=== PATIENT | male | born 1970 | race Caucasian/White ===

== ENCOUNTER 2018-05-21 02:22 | Outpatient (CLI) | payer BC, SELFPAY ==
[2018-05-21 11:39] LABS: Cholesterol 183 mg/dL (50-200); Glucose 86 mg/dL (70-100); HDL Cholesterol 39 mg/dL (40-60); LDL CHOLESTEROL 121 mg/dL (<100); Triglyceride 134 mg/dL (30-150)
[2018-05-22 08:58] LABS: PSA, Screening 0.6 ng/ml (0-3.5)
== END 2018-05-21 02:42 ==
PROVIDERS: PCP Family Medicine; Visit Provider Family Medicine
DX: E78.5 Hyperlipidemia, unspecified (principal); Z12.5 Encounter for screening for malignant neoplasm of prostate
CPT/HCPCS: 36415; 80061; 82947; 83721; 84153

== ENCOUNTER 2018-06-07 09:51 | Outpatient (CLI) | payer BC, SELFPAY ==
[2018-06-09 16:36] LABS: Testosterone, Total 275 ng/dL (240-950)
== END 2018-06-07 10:11 ==
PROVIDERS: PCP Family Medicine; Visit Provider Family Medicine
DX: N52.9 Male erectile dysfunction, unspecified (principal)
CPT/HCPCS: 36415; 84402; 84403

== ENCOUNTER 2018-09-11 06:11 | Day surgery (SDC) | payer BC, SELFPAY ==
--- NOTE | 2018-09-11 06:11 | W.PM.HP.N ---
Date of service: 09/11/18 Time of Service: 06:30 Assessment and Plan (1) Encounter for screening colonoscopy: Current visit: No Status: Acute P\\ Colonoscopy under sedation The patient is here for his first Colonoscopy pre-op. He has no family history of colon cancer. He has not had any bowel habit changes. -Discussed colonoscopy bowel prep as well as the procedure. Discussed possible complications of the procedure to include bleeding, pain, perforation, missed small lesion/polyp, sore throat, aspiration and adverse reaction to the medications. Questions were answered to patient?s satisfaction. No guarantees were implied or given. History of Present Illness Narrative: 48 y/o male presents for his first colonoscopy screening pre-op. He denies a family history of colon cancer. He denies any changes in bowel habits including bloody or black tarry stools, abdominal pain, diarrhea or constipation. He denies constitutional symptoms. Denies use of marijuana or any other recreational or illegal drugs. He denies chest pain, palpitations, dyspnea or dyspnea with exertion. He exercises 2x/wk. He denies prior history or family history of adverse reactions or complications with anesthesia. There have been no changes in his health since he was last seen in the office. Review of Systems Cardiovascular Denies chest pain, Denies chest pain at rest, Denies irregular heart rhythm, Denies dyspnea and Denies dyspnea on exertion Respiratory Denies cough, Denies dyspnea and Denies dyspnea on exertion FORMERLY [facility], 1928–1983 Surgical History History of total replacement of both hip joints (Resolved) Appendectomy Total replacement of hip VARICOSE VEIN REMOVAL 11/2016 Family History Mother Diabetes Father No problems noted. Sister Personal history of malignant neoplasm Sister No problems noted. Sister No problems noted. Brother No problems noted. Grandfather No problems noted. Grandfather No problems noted. Grandmother Diabetes Grandmother No problems noted. Son No problems noted. Son No problems noted. Social History household members: other details: 4 current occupational status: employed current occupation: Sales pets and animals: No frequency: 3-4 times per week duration: 45-60 minutes/day Smoking/Tobacco Use Status: Never alcohol intake: current alcohol intake frequency: holidays/special occasions only substance use type: does not use special nicole needs: No Meds Home Medications Medication Instructions Recorded Confirmed Type amoxicillin 500 mg tablet 2 gm PO ONCE PRN #12 tab 05/18/18 09/07/18 Rx sildenafil (antihypertensive) 20 20 - 100 mg PO DAILY PRN #30 tab 05/18/18 08/06/18 Rx mg tablet syringe with needle 3 mL 22 gauge #2 each 06/12/18 08/06/18 Rx x 1 testosterone cypionate 200 mg/mL 100 mg IM Q2W #1 ml 06/12/18 08/06/18 Rx intramuscular oil bisacodyl 5 mg tablet,delayed 5 mg PO ONCE #4 tab 08/06/18 08/06/18 Rx release polyethylene glycol 3350 17 255 g PO ONCE #255 gm 08/06/18 08/06/18 Rx gram/dose oral powder Allergies Allergy/AdvReac Type Severity Reaction Status Date / Time No Known Allergies Allergy Verified 08/06/18 10:07 Exam Resp Effort & Inspection: normal respiratory effort Auscultation: clear to auscultation bilaterally Cardio Rate: regular rate Rhythm: regular rhythm Heart Sounds: no gallops, no murmurs and no rubs
--- NOTE | 2018-09-11 06:24 | W.COLOREPORT ---
Date of service: 09/11/18 Time of Service: 07:35 Colonoscopy Report Date of procedure: 09/11/18 Pre-op diagnosis general: Colon Cancer Screening Post-op diagnosis procedure note: same Procedure: Colonoscopy Surgeon: Antonette Esteban Anesthesia proc note operative: MAC (Aleja Conley CRNA/ ASA 2) Estimated blood loss (mL): 0 Pathology: none sent Complications: None Disposition: same day Indications: Mr Greenfield is a 48-year-old gentleman who was seen in the office for his first screening colonoscopy. There is no family history of colon cancer. Risks, benefits and complications have been reviewed. Complications include but are not limited to bleeding, pain, perforation, missed small lesion/polyp, sore throat, aspiration and adverse reaction to the medications. Questions were entertained and answered to their satisfaction and they wished to proceed. No guarantees were given or implied. Prep: Miralax/Dulcolax Procedure Start Time: 07:35 Procedure End Time: 07:56 Retraction Time: 13 minutes Findings: Normal colonoscopy Procedure Description: After informed consent was obtained the patient was taken to the procedure room and placed in a left decubitous position. Monitors were applied and a time out was done. The patients name, date of , procedure, allergies to medications and metal in their body was reviewed. The patient was then sedated. Once sedated and comfortable a rectal exam was done. External exam was normal. Internal exam revealed a normal sphincter tone and no palpable masses. The prostate felt normal. The scope was then introduced and retro-flexed. No internal hemorrhoids were identified. The scope was then advanced to the cecum without difficulty. The TI and appendiceal orifice were identified. The prep was adequate. The scope was then slowly retracted over 13 minutes back into the rectum. There were no polyps and no diverticulosis. The scope was removed and the patient was woken up and taken back to Same day surgery in stable condition. The patient tolerated the procedure well and there were no immediate complications. Follow up: The patient should follow up in 10 years unless they develop changes in bowel habits or other new gastrointestinal complaints.
--- NOTE | 2018-09-11 06:25 | W.PM.DSUDISC ---
Discharge Plan Disposition Patient Disposition: HOME Condition: Good Discharge Details Reason For Visit: Colon Cancer Screening Attending Provider: Antonette Esteban Primary Care Provider: Anthony Kay Home Meds and New Rx's Prescriptions: Continued sildenafil (antihypertensive) 20 mg tablet 20 - 100 mg PO DAILY PRN (Reason: sexual activity) Qty: 30 RF: 8 amoxicillin 500 mg tablet 2 gm PO ONCE PRN (Reason: hip prostheses) Qty: 12 RF: 0 testosterone cypionate [Depo-Testosterone] 200 mg/mL oil 100 mg IM Q2W Qty: 1 RF: 2 Monoject Syringe 3 mL 22 gauge x 1 syringe .ROUTE .MEDSUPPLY Qty: 2 RF: 2 Discontinued bisacodyl [Dulcolax (bisacodyl)] 5 mg tablet,delayed release (DR/EC) 5 mg PO ONCE Qty: 4 RF: 0 polyethylene glycol 3350 17 gram/dose powder 255 g PO ONCE Qty: 255 RF: 0 Discharge Instructions Instructions: Colonoscopy (DC) Additional Instructions: Findings: Normal colon Follow up:10 years Please call if you develop: fevers >101.5 Nausea or Vomiting Abdominal pain that is not transient DAY SURGERY UNIT POST COLONOSCOPY INSTRUCTIONS 1. Because there will be medication in your system for the next 24 hours, you may feel a little sleepy. Your coordination will be affected. Therefore: a. Do not drive or operate dangerous equipment for 24 hours. b. Do not drink alcohol beverages for 24 hours (not even beer). c. Plan to go home and rest for the day. 2. Generally there are no restrictions on your activity after a day or so has gone by, but you may feel a bit fatigued for a few days. 3 After you arrive home you may have a light meal and return to a normal diet as you can tolerate it without feeling sick to your stomach. 4. After surgery, you may feel pain or discomfort. This should be only transient, but if it persists please contact your doctor. 5. If there are any questions regarding the findings of your procedure, please feel free to contact your doctor. 6. If you are unable to contact your doctor with a problem, contact the hospital at [phone]. 7. Continue all your regular medications unless directed otherwise. I understand the above instructions and have no questions. Signature of Patient or Responsible Adult Escort Date/Time Name of Responsible Adult Escort Signature of Nurse Date/Time Activity:: Activity as Tolerated Diet:: As Tolerated Discharge Orders Discharge Orders: Discharge Order (Routine); Ordered 09/11/18 Ordered By: Antonette Esteban DS: Diagnosis Discharge Diagnosis (1) Encounter for screening colonoscopy: Status: Acute (2) S/P colonoscopy: Status: Acute
[2018-09-11 06:34] VITALS: BP 130/80; PULSE 66; RESP 18; TEMP 35.5; O2SAT 97
[2018-09-11] MEDS: Lactated Ringers 1,000 ML 80 ML IV (07:12)
[2018-09-11 08:45] VITALS: BP 112/67; PULSE 57; RESP 16; TEMP 36; O2SAT 99
== END 2018-09-11 09:00 | disposition home or self-care (01) ==
PROVIDERS: PCP Family Medicine; Visit Provider Surgery
PROC: 0DJD8ZZ Inspection of Lower Intestinal Tract, Via Natural or Artificial Opening Endoscopic (ICD-10-PCS; CPT 45378; principal; 2018-09-11 07:30)
DX: Z12.11 Encounter for screening for malignant neoplasm of colon (principal)
CPT/HCPCS: 45378; NC

== ENCOUNTER 2018-11-30 10:12 | Outpatient (CLI) | payer BC, SELFPAY ==
--- NOTE | 2018-11-30 10:06 | DI.RAD_ITS ---
SYMPTOMS/DIAGNOSIS: F/U BILATERAL HIPS AND PELVIS: Five views were obtained. There are bilateral hip joint replacements in position. The components appear well seated. No other significant bony abnormality seen.
== END 2018-11-30 10:32 ==
PROVIDERS: PCP Family Medicine; Visit Provider Physician Assistant Surgical
DX: Z96.643 Presence of artificial hip joint, bilateral (principal)
CPT/HCPCS: 73521

== ENCOUNTER 2019-06-12 01:16 | Outpatient (CLI) | payer BC, SELFPAY ==
[2019-06-12 13:03] LABS: Calculated LDL 115 mg/dL; Cholesterol 180 mg/dL (50-200); HDL Cholesterol 37 mg/dL (40-60); Triglyceride 140 mg/dL (30-150)
[2019-06-14 15:52] LABS: Testosterone, Free 8.19 ng/dL (4.06-15.6); Testosterone, Total 315 ng/dL (240-950)
== END 2019-06-12 01:36 ==
PROVIDERS: PCP Family Medicine; Visit Provider Family Medicine
DX: R79.89 Other specified abnormal findings of blood chemistry (principal); E78.6 Lipoprotein deficiency
CPT/HCPCS: 36415; 80061; 84402; 84403

== ENCOUNTER 2021-06-23 01:36 | Outpatient (CLI) | payer BC, SELFPAY ==
[2021-06-23 12:21] LABS: HCT 48.3 % (40.0-50.0); HGB 16.2 g/dL (13.5-17.5); MCH 30.3 pg (27.0-33.0); MCHC 33.5 % (32.0-36.0); MCV 90.3 fL (80-95); Platelet Count 200 10^3/uL (130-400); RBC 5.35 10^6/uL (4.36-5.78); RDW 12.3 % (11.8-14.1); RDW-SD 40.6 fL; WBC 6.36 10^3/uL (4.4-10.8)
[2021-06-23 12:54] LABS: Calculated LDL 131 mg/dL (<100); Cholesterol 202 mg/dL (<200); HDL Cholesterol 37 mg/dL (40-60); TSH (W/Ref FT4) 1.23 uIU/mL (0.36-3.74); Triglyceride 174 mg/dL (<150)
[2021-06-23 18:00] LABS: PSA, Screening 0.6 ng/mL (0.0-3.5)
[2021-07-05 13:00] LABS: Testosterone, Free 47.3
[2021-07-05 13:01] LABS: Testosterone, Total 283 ng/dL (250-1100)
== END 2021-06-23 01:37 | disposition home or self-care (01) ==
LOC: LOS 01:36
PROVIDERS: PCP Family Medicine; Visit Provider Family Medicine
DX: Z00.00 Encounter for general adult medical examination without abnormal findings (principal); E78.5 Hyperlipidemia, unspecified; R53.83 Other fatigue; E03.9 Hypothyroidism, unspecified; Z12.5 Encounter for screening for malignant neoplasm of prostate
CPT/HCPCS: 36415; 80061; 84153; 84402; 84403; 85027; 84443

== ENCOUNTER 2022-07-04 04:10 | Outpatient (CLI) | payer BC, SELFPAY ==
[2022-07-04 12:49] LABS: Calculated LDL 116 mg/dL (<100); Cholesterol 186 mg/dL (<200); Glucose 94 mg/dL (74-106); HDL Cholesterol 42 mg/dL (40-60); Triglyceride 141 mg/dL (<150)
[2022-07-12 12:16] LABS: Testosterone, Free 12.1 ng/dL (4.06-15.6); Testosterone, Total 393 ng/dL (240-950)
== END 2022-07-04 04:11 | disposition home or self-care (01) ==
LOC: LOS 04:10
PROVIDERS: PCP Family Medicine; Visit Provider Family Medicine
DX: Z00.00 Encounter for general adult medical examination without abnormal findings (principal); E78.5 Hyperlipidemia, unspecified; R73.9 Hyperglycemia, unspecified; N52.8 Other male erectile dysfunction
CPT/HCPCS: 36415; 80061; 82947; 84402; 84403

== ENCOUNTER 2022-09-14 13:24 | Outpatient (CLI) | payer BC, SELFPAY ==
--- NOTE | 2022-09-14 13:15 | DI.RAD_ITS ---
Exam(s) XR SHOULDER RT COMPLETE 2+V EXAM: XR SHOULDER RT COMPLETE 2+V CLINICAL HISTORY: right shoulder pain. TECHNIQUE: 2D digital imaging was performed. Five views. COMPARISON: No exams were available for comparison FINDINGS: BONES: No acute fracture is present. No bony destructive lesion is seen. JOINTS: No dislocation present. No significant degenerative changes. SOFT TISSUE: Normal. IMPRESSION: Unremarkable radiographs of the right shoulder. DATA REPOSITORY: RADIATION DOSE DELIVERED:
== END 2022-09-14 13:25 | disposition home or self-care (01) ==
LOC: DIORS 13:25
PROVIDERS: PCP Family Medicine; Referring Provider Family Medicine; Visit Provider Student in an Organized Health Care Education/Training Program
DX: M25.511 Pain in right shoulder (principal)
CPT/HCPCS: 73030

== ENCOUNTER 2022-10-17 10:08 | Outpatient (CLI) | payer BC, SELFPAY ==
--- NOTE | 2022-10-17 09:30 | DI.MRI_ITS ---
Exam(s) MR UPPER JOINT RT WO EXAM: MR UPPER JOINT RT WO CLINICAL HISTORY: SLAP vs RCT,[id number]. TECHNIQUE: Multiplanar multisequence MRI was performed. COMPARISON: No exams were available for comparison FINDINGS: BONES: There is no fracture or contusion pattern. JOINTS: There are mild degenerative changes seen at the acromioclavicular joint. The glenohumeral olivia int is normal. TENDONS: Supraspinatus: There is tendinosis of the supraspinatus tendon. There is a focus of hyperintense sig nal seen in the articular surface of the supraspinatus tendon suggesting of a tear. Infraspinatus: Unremarkable. Subscapularis: Unremarkable. Teres Minor: Unremarkable. Biceps and V[place]: Unremarkable. MUSCLES: Unremarkable. GLENOID LABRUM: Unremarkable on this noncontrast examination. SOFT TISSUES: Unremarkable. LIGAMENTS: Unremarkable. OTHER: There is some fluid seen in the subacromial bursa. IMPRESSION: 1. Tendinosis of the supraspinatus tendon with a focus of hyperintense signal seen along the articula r surface suspicious for partial tear. 2. Unremarkable glenoid labrum on this noncontrast examination. 3. Degenerative changes seen in the acromioclavicular joint. 4. Small amount of fluid seen in the subacromial bursa. DATA REPOSITORY:
== END 2022-10-17 10:28 ==
LOC: DI 10:09
PROVIDERS: PCP Family Medicine; Visit Provider Student in an Organized Health Care Education/Training Program
DX: S43.431A Superior glenoid labrum lesion of right shoulder, initial encounter (principal); M25.511 Pain in right shoulder; M75.81 Other shoulder lesions, right shoulder; M25.411 Effusion, right shoulder; M19.011 Primary osteoarthritis, right shoulder
CPT/HCPCS: 73221

== ENCOUNTER 2024-07-29 12:44 | Outpatient (REF) | payer BC, SELFPAY ==
--- NOTE | 2024-07-29 09:00 | SKI_PTH ---
PATIENT: Anjum Greenfield LOC: [facility] U#:[id number] AGE/SX: 54/M ROOM: RE07/29/[address]: Julio Harden DO : 1970 BED: DIS: 07/29/2024 SPEC #: [id number] RECD: 07/29/24 12:49 STATUS: BEKAH REQ #: [id number] ADE: 07/29/24 09:[address]: Julio Harden DEPT: Surgical Specimen RECD BY: Sondra Singh ENTERED: 07/29/24 12:49 SP TYPE: VISHAL AMBRIZ DR: Anthony Kay MD Tissues: 1 - SKIN BIOPSY(SHAVE/PUNCH) Procedures: SKIN LEVEL 4 Comments: [id number]
== END 2024-07-29 12:45 | disposition home or self-care (01) ==
LOC: LBN 12:44
PROVIDERS: PCP Family Medicine; Visit Provider Emergency Medicine
DX: L57.0 Actinic keratosis (principal)
CPT/HCPCS: 88305

== ENCOUNTER 2024-08-02 01:19 | Outpatient (CLI) | payer BC, SELFPAY ==
[2024-08-02 12:36] LABS: Calculated LDL 88 mg/dL (<100); Cholesterol 188 mg/dL (<200); HDL Cholesterol 40 mg/dL (40-60); Triglyceride 302 mg/dL (<150)
[2024-08-02 18:25] LABS: PSA, Screening 0.8 ng/mL (<=3.5)
== END 2024-08-02 01:20 | disposition home or self-care (01) ==
LOC: LOS 01:20
PROVIDERS: PCP Family Medicine; Visit Provider Emergency Medicine
DX: E78.5 Hyperlipidemia, unspecified (principal); Z12.5 Encounter for screening for malignant neoplasm of prostate
CPT/HCPCS: 36415; 80061; 84153

== ENCOUNTER 2025-05-06 12:41 | Outpatient (REF) | payer BC, SELFPAY ==
--- NOTE | 2025-05-06 10:22 | LIPBX_PTH ---
PATIENT: Anjum Greenfield LOC: N U#:[id number] AGE/SX: 55/M ROOM: RE05/06/[address]: Leonides Walter MD : 1970 BED: DIS: 05/06/2025 SPEC #: [id number] RECD: 05/06/25 16:53 STATUS: BEKAH REQ #: [id number] ADE: 05/06/25 10:[address]: Leonides Walter DEPT: Surgical Specimen RECD BY: Sondra Singh ENTERED: 05/06/25 16:54 SP TYPE: LIPBX OTHR DR: Anthony Kay MD Tissues: 1 - LIP BIOPSY/RESECTION Procedures: GROSS AND MICRO LEVEL 3 Comments: [id number]
== END 2025-05-06 12:42 | disposition home or self-care (01) ==
LOC: LBN 12:41
PROVIDERS: PCP Family Medicine; Visit Provider Otolaryngology
DX: K13.29 Other disturbances of oral epithelium, including tongue (principal)
CPT/HCPCS: 88305; 88304